=== PATIENT | male | born 1995 | race African-American/Black ===

== ENCOUNTER 2017-02-01 16:50 | Emergency (ER) | payer SELFPAY ==
[~2017-02-01] VITALS: Ht 190.5 cm; Wt 93.0 kg
[2017-02-01] MEDS ORDERED: SODIUM CHLORIDE 0.9% 1,000 ML IV ONE (17:58)
[2017-02-01] MEDS ORDERED: MORPHINE SULFATE 4 MG/ML CPJ (NOT FOR IM USE) IV ONE (18:00)
[2017-02-01] MEDS ORDERED: KETOROLAC 30MG/ML VIAL IV ONE (18:00)
[2017-02-01] MEDS ORDERED: ONDANSETRON HCL 4MG/2ML VIAL IV ONE (18:00)
[2017-02-01] MEDS ORDERED: KETAMINE HCL 50 MG/ML 10ML IV ONE (18:15)
[2017-02-01] MEDS ORDERED: FENTANYL CITRATE/PF 50MCG/ML 2ML VIAL IV ONE (18:15)
[2017-02-01] MEDS ORDERED: MIDAZOLAM HCL 2 MG/2 ML VIAL IV ONE (18:15)
[2017-02-01 22:56] VITALS: BP 149/83
== END 2017-02-01 23:00 | disposition home or self-care (01) ==
LOC: ER 16:50
DX: S43.015A Anterior dislocation of left humerus, initial encounter (principal); X50.9XXA Other and unspecified overexertion or strenuous movements or postures, initial encounter; Y93.67 Activity, basketball; Y92.89 Other specified places as the place of occurrence of the external cause
CPT/HCPCS: 23650; 73030; 96361; 96374; 96375; 99152; 99153; 99285; J1885; J2250; J2270; J2405; J3010; J3490; Z7610; J7030

== ENCOUNTER 2017-02-06 23:33 | Emergency (ER) | payer MEDICAID ==
[~2017-02-06] VITALS: Ht 190.5 cm; Wt 94.0 kg
[2017-02-07] MEDS ORDERED: ETOMIDATE 2MG/ML 10ML VIAL IV ONE (00:15)
[2017-02-07] MEDS ORDERED: KETOROLAC 15MG/ML VIAL IV ONE (00:15)
[2017-02-07 01:30] VITALS: BP 142/76
== END 2017-02-07 02:45 | disposition home or self-care (01) ==
LOC: ER 23:33
DX: M24.412 Recurrent dislocation, left shoulder (principal)
CPT/HCPCS: 23650; 73030; 96374; 99152; 99285; J1885; J3490; L3670